=== PATIENT | male | born 1980 | race Caucasian/White ===

== ENCOUNTER 2024-01-23 08:13 | Emergency (ER) | payer MEDICARE, SELFPAY ==
[2024-01-23] VITALS (8 sets, daily range): BP systolic 122–147; BP diastolic 57–86; PULSE 52–69; RESP 18–20; TEMP 36.4; O2SAT 94–100; BMI 37.5
--- NOTE | 2024-01-23 08:44 | ED_ITS ---
Discharge Plan Disposition Patient Disposition: Home, Self-Care Prescriptions Prescriptions: No Action benzonatate [Tessalon Perles] 100 mg capsule 100 mg PO BID PRN (Reason: cough) Qty: 14 0RF Referrals Follow up/Referrals: Joann Spangler APRN [Primary Care Provider] - See instructions Activity Restrictions/Add. Instructions Additional Instructions/Restrictions: Follow-up with your family doctor regarding this visit to the emergency department and need for left renal ultrasound for complex cyst. Titrate MiraLAX until 1-2 soft bowel movements per day. Also talk to family doctor about scheduling colonoscopy for further evaluation of colon. Clinical Impressions Clinical Impression: Abdominal pain, Hepatic cyst, Renal cyst Instructions Patient Instructions: DI for Acute Abdominal Pain Discharge ED Provider: Matt Murray General Adult HPI General Chief complaint: Abdominal Pain Stated complaint: abd pain, R side Time Seen by Provider: 01/23/24 08:20 Mode of Arrival: Ambulatory Source of Information: Patient Limitations: No Limitations Description of Symptoms (Recalled from ER Triage Doc. by RN): hasnt pooped in three days. History of Present Illness HPI narrative: 43-year-old male no medical history presenting with abdominal pain in his right side. Patient has not had a bowel movement in 3 to 4 days, this is abnormal for him. He states last time he had a bowel movement was firm, hard, but no blood. Pain is right of umbilicus, not present at rest, made worse with changes in position, lying flat. Has not taken any medications or noticed anything that makes it better other than not doing exacerbating factors. No overlying skin changes, dysuria, hematuria, no fevers, chills, vomiting, pain at rest, or any other concerns. Please note that above description of symptoms, in this electronic medical record under categorization of recalled from ER triage doctor by RN are reflective of an initial nursing assessment, however, is not reflective of my full history and physical exam that was personally taken and clarified. Consequentially, this preceding description of symptoms, which may include the patient's categorized chief complaint in the EMR, do not reflect my personal clinical impression, and the ultimate description of history of present illness and patient stated complaints should be deferred to this section of the note. Unless stated otherwise or congruent with this section of the note, additional signs, symptoms, or incongruence should be interpreted as inaccurate with my clinical impression. Related Data Previous Rx's Medication Instructions Recorded benzonatate 100 mg capsule 100 mg PO BID PRN cough #14 caps 08/07/19 (Michelle Kuo) Allergies Allergy/AdvReac Type Severity Reaction Status Date / Time Penicillins Allergy Unknown Verified 08/07/19 17:30 [facility] [place] Disclaimer: The information contained in this section may have been updated after the patient was seen, as this information can be updated by other users. Social History Smoking Status: Never smoker alcohol intake: never substance use type: denies use current occupational status: employed Travel in the last 8 weeks: None household members: family housing: apartment ROS Obtained: Yes All systems reviewed & no additional complaints except as documented Physical Exam General General appearance: alert and in no apparent distress Head Head exam: atraumatic and normocephalic Eye Eye exam: Present PERRL and EOMI ENT ENT exam: Present mucous membranes moist Neck Neck exam: Present normal inspection, full ROM and trachea midline Respiratory Respiratory exam: Absent respiratory distress, wheezes, stridor, accessory muscle use or prolonged expiratory phase Cardiovascular Cardiovascular exam: Present regular rate and normal rhythm Abdominal Exam Abdominal exam: Present soft; Absent distention, tenderness, guarding, rebound, rigidity, heel tap sign, Carrasco's sign, Rovsing's sign or tenderness at McBurney's Point Extremities Exam Extremities exam: Absent edema Neurological Exam Neurological exam: Present alert, oriented X3, CN II-XII intact and normal gait; Absent motor sensory deficit Skin Skin exam: Present warm and dry; Absent diaphoresis or erythema Medical Decision Making Medical Records Medical records reviewed: Yes I reviewed the patient's medical records. Mars Inquiry Pt receiving controlled substance: No Mars was queried for this patient: No Vital Signs: 01/23/24 08:14 01/23/24 08:19 01/23/24 08:31 Temperature 97.6 F Temperature Source Oral Pulse Rate 62 69 Pulse Rate [Right] 60 Respiratory Rate 18 Blood Pressure 138/77 132/57 L Blood Pressure [Right Arm] 138/77 Blood Pressure Mean [Right Arm] 97 02 Sat by Pulse Oximetry 98 99 94 L Oxygen Delivery Method Room Air Room Air Room Air 01/23/24 09:30 01/23/24 10:00 01/23/24 10:30 Temperature Temperature Source Pulse Rate 60 61 52 L Pulse Rate [Right] Respiratory Rate Blood Pressure 129/83 122/86 139/78 Blood Pressure [Right Arm] Blood Pressure Mean [Right Arm] 02 Sat by Pulse Oximetry 99 99 99 Oxygen Delivery Method Room Air Room Air Room Air 01/23/24 11:00 01/23/24 12:11 Temperature 97.6 F Temperature Source Oral Pulse Rate 56 L 59 L Pulse Rate [Right] Respiratory Rate 20 Blood Pressure 147/77 H 145/80 H Blood Pressure [Right Arm] Blood Pressure Mean [Right Arm] 02 Sat by Pulse Oximetry 100 Oxygen Delivery Method Room Air Room Air Lab Data Lab Results 01/23/24 08:40: WBC 8.8, RBC 4.87, Hgb 14.4, Hct 43.9, MCV 90.2, MCH 29.5, MCHC 32.7, RDW 13.9, Plt Count 237, MPV 7.8, Neut % (Auto) 73.7, Lymph % (Auto) 17.8, [place] % (Auto) 5.3, Eos % (Auto) 2.0, Baso % (Auto) 1.1, Neut # (Auto) 6.5, Lymph # (Auto) 1.6, [place] # (Auto) 0.5, Eos # (Auto) 0.2, Baso # (Auto) 0.1, Sodium 139, Potassium 4.7, Chloride 100, Carbon Dioxide 30, Anion Gap 13.7, BUN 16, Creatinine 1.10, Estimated Creat Clear 132, Estimated GFR 73, Est GFR ( Amer) 88, Glucose 103 H, Lactate 1.4, Calcium 10.0, Total Bilirubin 1.1, AST 62 H, ALT 69, Alkaline Phosphatase 32 L, C-Reactive Protein 17.5 H, Total Protein 8.2, Albumin 4.7, Globulin 3.5 H, Albumin/Globulin Ratio 1.3, Lipase 76 01/23/24 09:15: Urine Color Yellow, Urine Appearance Clear, Urine pH 6.0, Ur Specific [place] 1.025, Urine Protein Negative, Urine Glucose (UA) Negative, Urine Ketones Negative, Urine Blood Negative, Urine Nitrate Negative, Urine Bilirubin Negative, Urine Urobilinogen 0.2, Ur Leukocyte Esterase Negative, Urine RBC None, Urine WBC None, Ur Squamous Epith Cells Occasional, Urine Bacteria Trace 01/23/24 08:40 01/23/24 08:40 Orders (Tests/Meds): ED MEDICATIONS Discontinued Medications Generic Name Dose Route Start Last Admin Trade Name Kendall PRN Reason Stop Dose Admin Acetaminophen 1,000 mg 01/23/24 08:32 01/23/24 08:53 Acetaminophen 500mg Tab PO 01/23/24 08:33 Not Given ONCE ONE Iopamidol 75 ml 01/23/24 10:14 01/23/24 10:15 Iopamidol-370 (76%);100ml Bottle IV 01/23/24 10:15 75 ml ONCE ONE Administration Ketorolac Tromethamine 15 mg 01/23/24 08:32 01/23/24 08:53 Ketorolac 30mg/Ml Vial IV 01/23/24 08:33 Not Given ONCE ONE Polyethylene Glycol 34 gm 01/23/24 10:00 01/23/24 10:41 Polyethylene Glycol 3350 17 Gm Packet PO 01/23/24 10:01 34 gm ONCE ONE Administration Sodium Chloride 10 ml 01/23/24 10:14 01/23/24 10:15 Sodium Chloride 0.9% 10ml Syr (Rad Only) IV 01/23/24 10:15 10 ml ONCE ONE Administration ORDERS Category Date Time Status CT abdomen pelvis w con Stat Cat Scan 01/23/24 09:59 Completed CBC w/Auto Diff [Complete Blood Count Auto Diff] Stat Lab 01/23/24 08:40 Completed CMP [Comprehensive Metabolic Panel] Stat Lab 01/23/24 08:40 Completed CRP [C-Reactive Protein] Stat Lab 01/23/24 08:40 Completed Lactic Acid Stat Lab 01/23/24 08:40 Completed Lipase Stat Lab 01/23/24 08:40 Completed UA [Urinalysis and Microscopic] Stat Lab 01/23/24 09:15 Completed Medical Decision Narrative: 43-year-old male no medical history presenting with abdominal pain in his right side. Patient has not had a bowel movement in 3 to 4 days, this is abnormal for him. He states last time he had a bowel movement was firm, hard, but no blood. Pain is right of umbilicus, not present at rest, made worse with changes in position, lying flat. Has not taken any medications or noticed anything that makes it better other than not doing exacerbating factors. No overlying skin changes, dysuria, hematuria, no fevers, chills, vomiting, pain at rest, or any other concerns. Does not smoke. History was obtained via conversation with patient. On arrival, patient hemodynamically stable, alert, oriented x4, appropriate, GCS 15, moving all extremities spontaneously, pupils equal and reactive to light. Full physical exam performed and significant for well- appearing male no acute distress. Abdomen is soft, nontender, nondistended. No overlying skin changes. No flank tenderness. Hemodynamically stable, afebrile, nontachycardic, normotensive. Differential includes PUD, gastritis, enteritis, gastroenteritis, pancreatitis, SBO, colitis, diverticulitis, nephrolithiasis, UTI, cholecystitis, choledocholithiasis, appendicitis, torsion, hepatitis, aortic pathology, mesenteric ischemia among others. Patient was offered Toradol and acetaminophen, declined for symptomatic management and correction of underlying abnormalities. He was given MiraLAX powder. Workup independently interpreted and significant for nonactionable CBC or chemistry, CRP mildly elevated 17.5. CT abdomen pelvis with numerous hepatic and renal cysts, but no acute pathology. No obvious gastrointestinal malignancy. See radiology read for full review of final results. On reevaluation, patient resting comfortably in his chair. Results were relayed to him, he is agreeable to outpatient management, I feel this is appropriate. Given patient presentation, workup, history, this most likely represents right lower quadrant abdominal pain, constipation, polycystic organ involvement. Because patient at baseline without signs or symptoms of clinical decompensation, deemed appropriate for discharge. Results were relayed to patient who voiced understanding and were agreeable to outpatient management and follow up. I discussed my clinical impression with patient and answered all questions. At this time, the evidence for any other entities in the differential is insufficient to warrant any further testing or ED observation. This was explained as well. Advisory was given that persistent or worsening symptoms require further evaluation. I confirmed the understanding of this discussion. Product Safety And Standards Engineer disclaimer Much of this encounter note is an electronic registered nurse nursery spoken language to printed text. Electronic registered nurse nursery of the spoken language may permit errors. Although I have reviewed the note, some errors may still exist. Critical Care Critical Care Time Critical Care Time: No
[2024-01-23 08:52] LABS: Basophils # 0.1 K/mm3 (0-0.2); Basophils % 1.1 % (0.1-2.0); Eosinophils # 0.2 K/mm3 (0.0-0.4); Hematocrit 43.9 % (42.0-52.0); Hemoglobin 14.4 g/dL (14.1-18.0); Lymphocytes # 1.6 K/mm3 (0.7-4.5); Lymphocytes % 17.8 % (10-50); Mean Corpuscular HGB Conc 32.7 g/dL (31.8-35.4); Mean Corpuscular Hemoglobin 29.5 pg (27.0-31.2); Mean Corpuscular Volume 90.2 fl (80-94); Mean Platelet Volume 7.8 fl (7.4-10.4); Monocytes # 0.5 K/mm3 (0.1-1.0); Monocytes % 5.3 % (1.7-9.3); Neutrophils # 6.5 K/mm3 (1.8-7.8); Neutrophils % 73.7 % (37.0-80.0); Platelet Count 237 K/mm3 (142-424); Red Blood Count 4.87 M/mm3 (4.60-6.20); Red Cell Distribution Width 13.9 % (11.5-17.5); White Blood Count 8.8 K/mm3 (4.8-10.8)
[2024-01-23 09:01] LABS: Lactic Acid 1.4 mmol/L (0.7-2.1)
[2024-01-23 09:23] LABS: Alanine Aminotransferase 69 U/L (12-78); Albumin Level 4.7 g/dl (3.5-5.0); Albumin/Globulin Ratio 1.3 (1.1-1.8); Alkaline Phosphatase 32 U/L (38-126); Anion Gap 13.7 mEq/L (5-15); Aspartate Amino Transferase 62 U/L (17-59); Bilirubin,Total 1.1 mg/dl (0.2-1.3); Blood Urea Nitrogen 16 mg/dl (9-20); Carbon Dioxide 30 mmol/L (22.0-30.0); Chloride 100 mmol/L (98-107); Creatinine Clearance Estimated 132 mL/min (50-200); Estimated Glomerular Filt Rate 73 ml/min (>60); GFR (African American) 88 ML/MIN (>60); Globulin 3.5 g/dL (1.3-3.2); Glucose 103 mg/dl (74-100); Lipase 76 U/L (23-300); Potassium 4.7 mmoL/L (3.5-5.1); Sodium 139 mmol/L (136-145); Total Protein,Serum 8.2 g/dl (6.3-8.2)
[2024-01-23 09:26] LABS: Microscopic, Urine URINE MICROSCOPIC (MICROSCOPIC)
[2024-01-23 09:28] LABS: C-Reactive Protein 17.5 mg/L (0-4)
--- NOTE | 2024-01-23 09:59 | CT_ITS ---
FINAL REPORT TECHNIQUE: Postcontrast axial images through the abdomen and pelvis were performed. This study was performed with techniques to keep radiation doses as low as reasonably achievable, (ALARA). Individualized dose reduction techniques using automated exposure control or adjustment of mA and/or kV according to the patient's size were employed. CLINICAL HISTORY: RLQ pain, elevated CRP 10 min kidney delay FINDINGS: Abdomen: The lung bases are clear. There are multiple hepatic cysts measuring up to 35 mm. The spleen is unremarkable. The adrenals are normal. The pancreas is unremarkable. Multiple bilateral low-attenuation renal masses are identified consistent with cysts. There is parenchymal calcification in the lower pole of the right kidney. There is an 8 mm mass in the lateral left kidney which does not appear to be a simple cyst, likely represents a mildly complicated cyst. The aorta is normal in caliber. No free fluid or adenopathy is identified. No findings for mechanical bowel obstruction are identified. Pelvis: The appendix is normal. Small inguinal hernias containing fat are noted. The urinary bladder is unremarkable. No free fluid, free air, abscess or adenopathy is identified. IMPRESSION: Hepatic and renal masses as above, one of which likely represents a mildly complicated cyst. Reviewed, Interpreted and Dictated by Fidencio Newby III, MD Transcribed by Cher Castellano Authenticated and [facility]
[2024-01-23 10:15] LABS: Appearance,Urine CLEAR (Clear); Bilirubin,Urine Negative (Negative); Blood, Urine Negative (Negative); Color,Urine YELLOW (Yellow); Glucose,Urine (UA) Negative (Negative); Ketones,Urine Negative (Negative); Leukocyte Esterase,Urine Negative (Negative); Nitrate,Urine Negative (Negative); Protein,Urine Negative (Negative); Specific Gravity, Urine 1.025 (1.005-1.030); Urobilinogen,Urine 0.2 EU/dl (0.2)
[2024-01-23] MEDS: IOPAMIDOL-370 (76%);100ML BOTTLE 75 ML IV (10:15)
[2024-01-23] MEDS: SODIUM CHLORIDE 0.9% 10ML SYR (RAD ONLY) 10 ML IV (10:15)
--- NOTE | 2024-01-23 10:40 | PC.NURSE ---
ROUNDED ON PT NO NEEDS AT THIS TIME,CALL LIGHT IN REACH
[2024-01-23] MEDS: POLYETHYLENE GLYCOL 3350 17 GM PACKET 34 GM PO (10:41)
--- NOTE | 2024-01-23 10:42 | PC.NURSE ---
called lab to check status of UA results, states 2 min remaining. aware
[2024-01-23 10:45] LABS: Bacteria,Urine Trace /lpf; Squamous Epithelial Cell,Urine Occasional #/hpf (0-5)
== END 2024-01-23 12:12 | disposition home or self-care (01) ==
PROVIDERS: Emergency Provider Emergency Medicine; PCP Nurse Practitioner
DX: R10.31 Right lower quadrant pain (principal); N28.1 Cyst of kidney, acquired; K76.89 Other specified diseases of liver
CPT/HCPCS: 74177; 80053; 81001; 83605; 83690; 85025; 86140; 96374; 99284; Q9967